=== PATIENT | female | born 1945 | race Caucasian/White ===

== ENCOUNTER 2018-05-16 17:30 | Emergency (ER) | payer MEDICARE, MEDICAID ==
[2018-05-16] MEDS: ACETAMINOPHEN 500 MG TAB PO (19:24)
[2018-05-16] MEDS: morphine 2 MG INJ IV (19:46)
== END 2018-05-16 22:07 | disposition home or self-care (01) ==
LOC: FTE 17:30
DX: S42.212A Unspecified displaced fracture of surgical neck of left humerus, initial encounter for closed fracture (principal); E11.9 Type 2 diabetes mellitus without complications; I10 Essential (primary) hypertension; S80.211A Abrasion, right knee, initial encounter; S00.211A Abrasion of right eyelid and periocular area, initial encounter; S00.11XA Contusion of right eyelid and periocular area, initial encounter; S00.83XA Contusion of other part of head, initial encounter; W01.0XXA Fall on same level from slipping, tripping and stumbling without subsequent striking against object, initial encounter; Y92.9 Unspecified place or not applicable; Z79.84 Long term (current) use of oral hypoglycemic drugs
CPT/HCPCS: 29105; 70450; 70486; 73030; 73060; 73562; 99284-25